=== PATIENT | male | born 1980 | race Caucasian/White ===

== ENCOUNTER 2022-12-23 14:45 | Emergency (ER) | payer OTHER, SELFPAY ==
[2022-12-23 14:56] VITALS: BP 127/82; PULSE 91; RESP 18; TEMP 37.1; O2SAT 98; BMI 26.5
--- NOTE | 2022-12-23 15:30 | ED.NURSE ---
wound on left thumb was dressed with bacitracin, telfa-#7 finger splint.
--- NOTE | 2022-12-23 17:20 | ED_ITS ---
HPI - Extremity Injury (Upper) General Chief Complaint: Extremity Pain/Injury, Upper Stated Complaint: L thumb not looking right Time Seen by Provider: 12/23/22 14:52 Source: patient Mode of arrival: ambulatory Limitations: no limitations History of Present Illness HPI narrative: Patient is a 42-year-old gentleman who presents here with his left thumb laceration looking kind of funny, he describes as black on the tip, that was sutured 4 days ago. He was seen here after an Axe injury after split some wood. He was sewed up by Dr. Gaurav Gonzalez please see that note, have any increased pain denies any fevers chills, but the areas black. Came in because it looks different than he thought it should. Related Data Home Medications Medication Instructions Recorded Confirmed escitalopram oxalate 5 mg tablet 5 mg PO DAILY 12/20/22 12/20/22 (Lexapro) Allergies Allergy/AdvReac Type Severity Reaction Status Date / Time No Known Drug Allergies Allergy Verified 12/23/22 14:59 Review of Systems Status of ROS: Reports: 6 or more systems reviewed and unremarkable except as noted in History and below PFSH PFSH Social History Smoking Status: Former smoker Do you use any of these nicotine containing products: None Second hand tobacco smoke exposure: No How often do you have a drink containing alcohol: 4 or more times a week How many standard drinks containing alcohol do you have on a typical day: 5 or 6 How often do you have six or more drinks on one occasion: Monthly AUDIT-C Alcohol total score: 8 Non-prescribed substance use: denies use service: No Exam Narrative: Exam Narrative: On examination there is definite flap laceration involving the ulnar side of his left thumb, involving approximately a 3rd-25% of the nail also. Sutures are in place, and the entire area of the flap is black, consistent with non viability. Some mild tenderness is noted, I did review the note. Const: Vital Signs, click to edit/add: Vital Signs - 24 hr 12/23/22 14:56 Temperature 98.7 F Pulse Rate [Right Pulse Oximeter] 91 Respiratory Rate 18 Blood Pressure [Ri ght Upper Arm] 127/82 Pulse Oximetry 98 Oxygen Delivery Me thod Room Air Documenting provider has reviewed patient's vital signs: yes Course Course Hospital Course: The remainder of the finger is nicely viable with pink, I do not detect any pus, there was a little bit of a smell, but I wonder if this is just the skin itself. I will put him on some antibiotics just to be on the safe side will have him follow-up with Hand surgery in the next 24 hours for their opinion on this. We will put him in a stack finger splint also. Explained him a lot of times they will just follow this, and then do a skin graft as needed. He was comfortable with this plan. Vital Signs Vital signs: Initial Vital Signs Temperature 98.7 F 12/23/22 14:56 Temperature Source Temporal Artery Scan 12/23/22 14:56 Pulse Rate 91 12/23/22 14:56 Pulse Rhythm Regular 12/23/22 14:56 Pulse Strength 3+ Normal 12/23/22 14:56 Respiratory Rate 18 12/23/22 14:56 Blood Pressure 127/82 12/23/22 14:56 Blood Pressure Mean 97 12/23/22 14:56 Blood Pressure Position Sitting 12/23/22 14:56 Pulse Oximetry 98 12/23/22 14:56 Oxygen Delivery Method Room Air 12/23/22 14:56 Vital Signs Temperature 98.7 F 12/23/22 14:56 Pulse Rate 91 12/23/22 14:56 Respiratory Rate 18 12/23/22 14:56 Blood Pressure 127/82 12/23/22 14:56 Pulse Oximetry 98 12/23/22 14:56 Oxygen Delivery Method Room Air 12/23/22 14:56 Temperature 98.7 F 12/23/22 14:56 Pulse Rate 91 12/23/22 14:56 Respiratory Rate 18 12/23/22 14:56 Blood Pressure 127/82 12/23/22 14:56 Pulse Oximetry 98 12/23/22 14:56 Oxygen Delivery Method Room Air 12/23/22 14:56 Discharge Plan Discharge Clinical Impression: Laceration of thumb with damage to nail Patient Disposition: Home, Self-Care Condition: Stable Instructions: Laceration (DC), Finger Laceration (ED) Additional Instructions: I do not think that piece of flap is viable on your finger, which means it typically just turns black and falls off. I do not think there is infection here, but we will put you on some antibiotics for this. We use the Stack finger splint and we will have you see Hand surgery for evaluation. Follow up appointment is scheduled with [facility] on 12/25 with a 9:30am appointment time. Please arrive at 9:15am to check in. Call [phone] to verify your insurance information. [facility] [address] [place] [address] Activity Level: No Restrictions Prescriptions: No Action escitalopram oxalate [Lexapro] 5 mg tablet 5 mg PO DAILY Follow Up/Referrals: Provider,Not a Local [Primary Care Provider] - Stand Alone Forms: MyHealth Info Instructions
== END 2022-12-23 15:47 | disposition home or self-care (01) ==
PROVIDERS: Emergency Provider Family Medicine
DX: S61.112A Laceration without foreign body of left thumb with damage to nail, initial encounter (principal); W27.0XXA Contact with workbench tool, initial encounter
CPT/HCPCS: 99282; 99283

== ENCOUNTER 2023-09-22 19:02 | Outpatient (CLI) | payer OTHER, SELFPAY | END 2023-09-22 19:03 | disposition home or self-care (01) | PROVIDERS: Visit Provider Family Medicine | DX: Z13.228 Encounter for screening for other metabolic disorders (principal); Z13.29 Encounter for screening for other suspected endocrine disorder | CPT/HCPCS: 80053; 84443 ==